=== PATIENT | female | born 1940 | race Caucasian/White ===

== ENCOUNTER → 2017-08-25 | Outpatient (CLI) | payer MEDICARE ==
[~2017-08-25] MED LIST: ASCO500; Aspirin EC81 MG; ERGO400; Prinivil10 MG; Super B Comple150 MG; Systane 0.3-0.1 EACH; UBID100
[2017-08-27 13:29] LABS: HPV Genotype 16 Not Detected (NOTDET); HPV Genotype 18 Not Detected (NOTDET)
[2017-09-01 18:46] LABS: HPV High Risk Other Not Detected (NOTDET)
== END | disposition home or self-care (01) ==
LOC: LAB 11:42
PROVIDERS: Nurse Practitioner Obstetrics & Gynecology
DX: Z01.419 Encounter for gynecological examination (general) (routine) without abnormal findings (principal)
CPT/HCPCS: 87624; G0123

== ENCOUNTER 2017-11-27 08:25 | Day surgery (SDC) | payer MEDICARE ==
[~2017-11-27] VITALS: Ht 157.5 cm; Wt 77.8 kg
== END 2017-11-27 10:59 | disposition home or self-care (01) ==
LOC: ORSCSDS 08:25
PROVIDERS: Surgery
PROC: 0DBL8ZX Excision of Transverse Colon, Via Natural or Artificial Opening Endoscopic, Diagnostic (ICD-10-PCS; principal; 2017-11-27 09:45)
DX: Z12.11 Encounter for screening for malignant neoplasm of colon (principal); D12.3 Benign neoplasm of transverse colon; Z86.010 Personal history of colon polyps; E78.5 Hyperlipidemia, unspecified; E66.9 Obesity, unspecified; Z68.32 Body mass index [BMI] 32.0-32.9, adult; Z79.82 Long term (current) use of aspirin; Z79.899 Other long term (current) drug therapy
CPT/HCPCS: 88305; J7120

== ENCOUNTER → 2017-12-11 | Outpatient (CLI) | payer MEDICARE ==
[2017-12-11 10:22] LABS: BASOPHILS ABSOLUTE AUTO 0.04 K/mm3 (0.00-0.23); BASOPHILS PERCENT AUTO 1 % (0-2); EOSINOPHILS ABSOLUTE AUTO 0.15 K/mm3 (0.00-0.68); EOSINOPHILS PERCENT AUTO 3 % (0-6); Hematocrit 38.6 % (33.0-51.0); Hemoglobin 12.9 g/dL (11.5-16.0); IMMATURE GRAN ABSOLUTE AUTO 0.01 K/mm3 (0.00-0.10); IMMATURE GRAN PERCENT AUTO 0 % (0-1); LYMPHOCYTES PERCENT AUTO 38 % (21-46); MONOCYTES ABSOLUTE AUTO 0.67 K/mm3 (0.16-1.47); MONOCYTES PERCENT AUTO 13 % (4-13); Mean Corpuscular HGB 32.3 pg (26.0-34.0); Mean Corpuscular HGB Conc 33.4 g/dL (31.5-36.5); Mean Corpuscular Volume 97 fL (80-100); Mean Platelet Volume 10.5 fL (9.1-12.4); NEUTROPHILS ABSOLUTE AUTO 2.39 K/mm3 (1.96-9.15); NEUTROPHILS PERCENT AUTO 45 % (41-73); Platelet Count 196 K/mm3 (150-400); RDW Coefficient Variation 13.2 % (11.7-14.2); RDW Standard Deviation 47.1 fL (35.1-46.3); White Blood Cell Count 5.26 K/mm3 (4.00-11.30)
[2017-12-11 10:26] LABS: Source, Urine Clean Catch
[2017-12-11 10:58] LABS: Albumin, Blood 3.9 g/dL (3.4-5.0); Bilirubin, Total 0.6 mg/dL (0.1-1.0); Bun/Creatinine Ratio 22.8 (12.0-20.0); Calcium, Blood 9.5 mg/dL (8.5-10.1); Creatinine, Blood 1.01 mg/dL (0.40-1.00); Globulin, Blood 3.8 g/dL (2.2-4.0); Potassium, Blood 4.3 mmol/L (3.5-5.5); Total Protein, Blood 7.7 g/dL (6.4-8.2)
[2017-12-11 11:43] LABS: Squamous Epithelial Cells Few /hpf (Few)
[2017-12-11 11:57] LABS: Bacteria Few /hpf
== END | disposition home or self-care (01) ==
LOC: LAB SHORT 10:15 → LAB EV 10:15
PROVIDERS: General Practice
DX: Z53.9 Procedure and treatment not carried out, unspecified reason (principal)
CPT/HCPCS: 80053; 81015; 85025; 87086

== ENCOUNTER → 2019-02-22 | Outpatient (CLI) | payer MEDICARE | END | disposition home or self-care (01) | LOC: PLD 14:49 → LAB SHORT 14:49 | DX: C44.519 Basal cell carcinoma of skin of other part of trunk (principal) | CPT/HCPCS: 88305 ==

== ENCOUNTER → 2019-12-16 | Outpatient (CLI) | payer MEDICARE ==
[2019-12-17 14:08] LABS: HPV 16 Negative (Negative); HPV 18 Negative (Negative); HPV OTHER HR TYPES Negative (Negative)
== END | disposition home or self-care (01) ==
LOC: LAB 10:46 → LAB SHORT 10:46
PROVIDERS: Advanced Practice Midwife
DX: Z01.419 Encounter for gynecological examination (general) (routine) without abnormal findings (principal)
CPT/HCPCS: 87624; G0123

== ENCOUNTER 2020-09-07 18:08 | Inpatient (IN) | payer MEDICARE ==
[~2020-09-07] VITALS: Ht 157.5 cm; Wt 81.8 kg
[~2020-09-07 18:08] MED LIST changes: +LISI5 PO; -Prinivil10 MG
[2020-09-07 19:18] LABS: BASOPHILS ABSOLUTE AUTO 0.02 K/mm3 (0.00-0.23); BASOPHILS PERCENT AUTO 0 % (0-2); EOSINOPHILS ABSOLUTE AUTO 0.03 K/mm3 (0.00-0.68); EOSINOPHILS PERCENT AUTO 0 % (0-6); Hematocrit 38.3 % (33.0-51.0); Hemoglobin 12.7 g/dL (11.5-16.0); IMMATURE GRAN ABSOLUTE AUTO 0.04 K/mm3 (0.00-0.10); IMMATURE GRAN PERCENT AUTO 1 % (0-1); LYMPHOCYTES ABSOLUTE AUTO 1.56 K/mm3 (0.84-5.20); LYMPHOCYTES PERCENT AUTO 19 % (21-46); MONOCYTES ABSOLUTE AUTO 0.88 K/mm3 (0.16-1.47); MONOCYTES PERCENT AUTO 11 % (4-13); Mean Corpuscular HGB Conc 33.2 g/dL (31.5-36.5); Mean Corpuscular Volume 97 fL (80-100); Mean Platelet Volume 11.9 fL (9.1-12.4); NEUTROPHILS ABSOLUTE AUTO 5.72 K/mm3 (1.96-9.15); NEUTROPHILS PERCENT AUTO 69 % (41-73); Platelet Count 171 K/mm3 (150-400); RDW Standard Deviation 49.5 fL (35.1-46.3); Red Blood Cell Count 3.97 M/mm3 (3.80-5.20); White Blood Cell Count 8.25 K/mm3 (4.00-11.30)
[2020-09-07 19:30] LABS: Albumin, Blood 3.2 g/dL (3.4-5.0); Albumin/Globulin Ratio 0.8 (0.8-1.8); Bilirubin, Total 0.6 mg/dL (0.1-1.0); Bun/Creatinine Ratio 20.9 (12.0-20.0); Calcium, Blood 9.1 mg/dL (8.5-10.1); Creatinine, Blood 1.1 mg/dL (0.40-1.00); Globulin, Blood 3.9 g/dL (2.2-4.0); Potassium, Blood 4.2 mmol/L (3.5-5.5); Total Protein, Blood 7.1 g/dL (6.4-8.2)
[2020-09-07 22:06] LABS: International Normalized Ratio 1.07; Prothrombin Time Results 11.4 Sec (9.7-11.5)
--- NOTE | 2020-09-08 02:00 | NUR ---
PT ADMITTED TO ROOM ICU 6 FROM EMERGENCY DEPARTMENT. ARRIVES TO ROOM AT 0028 THIS MORNING. SLIDE TRANSFERRED TO BED. SECONDARY TO POSSIBLE INTERVENTION IN AM FOR EXTENSIVE PE'S, AND DVT IN RIGHT LEG PLACED 16 ESTONIAN TEMP PROBE URIAS. PT VERBALIZES UNDERSTANDING, AND AGREEMENT FOR PLACEMENT. HAD VOIDED JUST PRIOR TO INSERTION. NOTED URINE IN BEDPAN WAS MAGDALENA/RED IN COLOR. INQUIRED IF PT HAS TAKEN PYRIDIUM, AND SHE STATED NO. PT STATES THAT HER URINE HAS BEEN LIKE THIS WHEN SHE WAS HOME. ALSO PLACED POWERGLIDE IN LEFT UPPER ARM. DR LIEBERMAN MADE AWARE OF URINE COLOR. SENT UA. WILL CONTINUE HEPARIN DRIP AND MONITOR H/H.
[2020-09-08] MEDS ORDERED: Vitamin D2000 UNIT PO (02:15)
[2020-09-08 05:37] LABS: BASOPHILS ABSOLUTE AUTO 0.01 K/mm3 (0.00-0.23); BASOPHILS PERCENT AUTO 0 % (0-2); EOSINOPHILS PERCENT AUTO 0 % (0-6); Hematocrit 35.5 % (33.0-51.0); Hemoglobin 11.7 g/dL (11.5-16.0); IMMATURE GRAN ABSOLUTE AUTO 0.04 K/mm3 (0.00-0.10); IMMATURE GRAN PERCENT AUTO 1 % (0-1); LYMPHOCYTES ABSOLUTE AUTO 1.05 K/mm3 (0.84-5.20); LYMPHOCYTES PERCENT AUTO 19 % (21-46); MONOCYTES ABSOLUTE AUTO 0.32 K/mm3 (0.16-1.47); MONOCYTES PERCENT AUTO 6 % (4-13); Mean Corpuscular Volume 94 fL (80-100); Mean Platelet Volume 11.8 fL (9.1-12.4); NEUTROPHILS ABSOLUTE AUTO 4.21 K/mm3 (1.96-9.15); NEUTROPHILS PERCENT AUTO 75 % (41-73); Platelet Count 169 K/mm3 (150-400); RDW Coefficient Variation 13.8 % (11.7-14.2); Red Blood Cell Count 3.77 M/mm3 (3.80-5.20); White Blood Cell Count 5.63 K/mm3 (4.00-11.30)
[2020-09-08 06:23] LABS: Bun/Creatinine Ratio 21.1 (12.0-20.0); Calcium, Blood 8.8 mg/dL (8.5-10.1); Creatinine, Blood 0.95 mg/dL (0.40-1.00); Potassium, Blood 4.5 mmol/L (3.5-5.5)
--- NOTE | 2020-09-08 06:30 | NUR ---
H/H REMAINS STABLE. DR LIEBERMAN AGAIN MADE AWARE. PT CONTINUES ON HEPARIN DRIP AT 15 UNITS/KG. PT HAS REMAINED ON 3-4 LITERS OXYGEN PER NASAL CANNULA. HAS BEEN ABLE TO SLEEP MOST OF NIGHT. WILL CONTINUE TO MONITOR PT, AND WILL REPORT OFF TO ONCOMING.
[2020-09-08 07:04] LABS: Source, Urine Catheter
[2020-09-08 07:21] LABS: Appearance, Urine Bloody (Clear); Bilirubin, Urine Neg (Neg); Blood, Urine 5+ (Neg); Color, Urine Red (P-Yellow); Glucose Qualitative, Urine Neg (Neg); Ketones, Urine Neg (Neg); Leukocyte Esterase, Urine 1+ (Neg); Nitrite, Urine Neg (Neg); Protein, Urine 3+ (Neg); Specific Gravity, Urine 1.015 (1.003-1.022); Urobilinogen, Urine NORM (Normal)
[2020-09-08 07:23] LABS: Red Blood Cells, Urine TNTC /hpf (0-2); Squamous Epithelial Cells Few /hpf (Few)
[2020-09-08 07:24] LABS: Amorphous Mod (0-Heavy); Bacteria Mod /hpf
--- NOTE | 2020-09-08 08:30 | NUR ---
PT RESTING IN BED. A/O X4, DENIES PAIN AND SOB. ON 3L NC WITH SPO2 96%. HEPARIN GTT RUNNING FOR PE'S. DR. MO HAS BEEN CONSULTED FOR POSSIBLE INTERVENTION WITH PE'S AND DVT. HAS GOOD FLOW TO BLE WITH GOOD CAP REFILL AND PULSES. DENIES NUMBNESS OR TINGLING. PT STATES SHE GOT A GOOD NIGHT SLEEP. NO REQUESTS AT THE MOMENT.
--- NOTE | 2020-09-08 10:30 | NUR ---
DR. ERNANDEZ IN TO SEE PT. LET HIM KNOW ABOUT PT'S HR TRENDING 40'S-50'S AFIB. PT IS A/O X4, DENIES PAIN OR SOB.
--- NOTE | 2020-09-08 13:05 | NUR ---
CARE COORDINATION REFERRAL - ADMIT: 09/07/20 DISCHARGE: DX:PNEUMONIA DUE TO COVID-19 VIRUS, MULTIPLE PES IN ALL LOBES WITH SOME BEING OCCLUSIVE WITH ASSOCIATED RIGHT HEART STRAIN, ACUTE HYPOXIC RESPIRATORY FAILURE CC: YESI CALL: RESIDENCE: HOME CAREGIVER: JANA BENTON, SON, , GENO BENTON, SON, , DX: COVID-19, HTN, PVD, CKD-STAGE 3, SEE LIST DME: COMPRESSION STOCKINGS CCM: NONE HOME HEALTH: NONE
--- NOTE | 2020-09-08 14:30 | NUR ---
PT'S HR DIPPING IN TO HIGH 30'S AT TIMES AND BP IS TRENDING LOWER. [facility] REGULAT[facility] AFFAIRS SPECIALIST SPOKE WITH DR. ERNANDEZ AND CONSULTED DR. BELTRAN FOR CARDIOLOGY CONSULT. DR. BELTRAN LOOKED OVER PT'S CHART AND WENT TO TALK TO DR. MO ABOUT CASE. PT STILL HAS NO COMPLAINTS AND IS NOT REQUIRING ANY MORE O2 THAN THIS AM. 500ML BOLUS STARTED.
--- NOTE | 2020-09-08 15:19 | NUR ---
DR. MO IN TO SEE PT. WILL BE GOING TO WATCHSTANDER FOR INTERVENTION FOR PE.
--- NOTE | 2020-09-08 16:30 | NUR ---
PT TAKEN TO INSTRUMENT AND ELECTRICAL TECHNICIAN BY INSTRUMENT AND ELECTRICAL TECHNICIAN RN X2, NO SIGN OF DISTRESS.
--- NOTE | 2020-09-08 17:40 | NUR ---
PT BACK TO ROOM FROM ACCELERATOR OPERATOR. HAS EKOS TO R FEMORAL VENOUS SHEATH WITH TPA AND HEPARIN RUNNING. PUMPS CONFIRMED WITH KRISTA BUCHANAN WITH DR. MO'S ORDERS. PT IS A/O X4. DENIES PAIN, SOB, AND N/V. NO NUMBNESS OR TINGLING IN LEGS. HAS STRONG DORSAL PEDAL PULSES. SPO2 PROBE ON R 2ND TOE READING IN THE HIGH 90'S. PT IS COMPLIANT WITH LAYING FLAT AND IS COMFORTABLE AT THE MOMENT.
--- NOTE | 2020-09-08 18:35 | NUR ---
SUMMARY PT IS A/O X4. WENT TO [employer] PLANTER THIS EVENING FOR EKOS PLACEMENT DUE PE'S AND DVT. R FEMORAL VENOUS SHEATH IN PLACE WITH HEPARIN AND TPA RUNNING THROUGH PORT. SITE IS SOFT NON TENDER, NO HEMATOMA. HAS STRONG DORSAL PEDAL PULSES BILAT. FEET ARE WARM AND PINK. NO SIGN OF DISTRESS. SEE PREVIOUS NOTES.
--- NOTE | 2020-09-08 21:37 | NUR ---
SHIFT ASSESSMENT ASSUMED CARE OF PT @ 1900. RECV'D REPORT FROM BRINA BUCHANAN. PT ALERT AND ORIENTED. LAYING SUPINE IN BED, KEEPING R LEG STRAIGHT. TPA AND HEPARIN RUNNING PER ORDERS IN R R FEMORAL VENOUS SHEATH, CONFIRMED RATE WITH BRINA BUCHANAN. NO NUMBNESS/ TINGLING IN LEGS. GOOD PMS, CAP REFILL R FOOT <3SEC. SPO2 PROBE ON R TOE, SPO2 HIGH 90'S. PT COMFORTABLE UPON ASSESSMENT. WILL CONTINUE TO MONITOR.
--- NOTE | 2020-09-09 05:58 | NUR ---
SHIFT SUMMARY NO SIGNIFICANT CHANGES THIS SHIFT. PT CONTINUES TO LAY SUPINE, COMPLIANT WITH KEEPING LEG IMMOBILE. PT C/O MODERATE BACK PAIN FROM POSITION, MEDICATED WITH PRN PAIN MEDS. HEPARIN AND TPA CONTINUE TO INFUSE @ PRESCRIBED RATE IN R FEMORAL VENOUS SHEATH. GOOD PULSE, MOTOR, AND SENSORY OF R EXTREMITY. CAP REFILL <3 SECONDS OF R TOES. URIAS CATH PATENT, DRAINING RED URINE. WILL CONTINUE TO MONITOR.
--- NOTE | 2020-09-09 08:00 | NUR ---
PT RESTING IN BED. A/O X4. HAS PAIN IN LOW BACK FROM LAYING FLAT DURING THE NIGHT. PT HAS R FEMORAL VENOUS SHEATH WITH EKOS IN PLACE, THEREFORE CANNOT FLEX AT THE HIP OR NECK. WAS ABLE TO VERY SLIGHTLY RAISE KNEES IN BED WITHOUT FLEXING HIPS AND GAVE DOSE OF MORPHINE. PT STATES THIS HELPED BACK PAIN. STRONG PEDAL PULSES AND FEET ARE PINK AND WARM. DENIES SOB OR N/V. ASSISTED WITH DRINKING ENSURE. CALL LIGHT IN REACH. PT LISTENING TO MUSIC.
--- NOTE | 2020-09-09 12:25 | NUR ---
DISCUSSED WITH DR. ERNANDEZ AT BEDSIDE PT'S NEED FOR ANTICOAGULATION NOW THAT THE TPA AND HEPARIN HAVE BEEN STOPPED.
--- NOTE | 2020-09-09 12:30 | NUR ---
DR. MALIK CAME IN AND REMOVED EKOS CATHETER. SHEATH PULLED AND PRESSURE HELD FOR 10MINUTES. CLEANED AREA WITH CHLORASEPT THEN PLACED GAUZE WITH CLEAR DRESSING. PT TOLERATED WELL. NO SIGN OF DISTRESS. CALL LIGHT IN REACH.
--- NOTE | 2020-09-09 18:20 | NUR ---
SUMMARY PT IS SITTING UP EATING DINNER. HAD EKOS REMOVED THIS AM BY DR. MALIK. SHEATH REMOVED AND REMAINS STABLE NO SIGNS OF BLEEDING. DENIES PAIN NOW THAT SHE CAN SIT UP IN BED AND MOVE MORE. TITRATED OXYGEN DOWN TO 1L NC AND TOLERATING WELL. CHANGED TO PCU STATUS. SON CAME IN AND VISITED TODAY. NO COMPLAINTS OR REQUESTS.
--- NOTE | 2020-09-09 21:00 | NUR ---
SHIFT ASSESSMENT ASSUMED CARE OF PT @ 1900, RECEIVED REPORT FROM CHANEL GONSALVES. PT RESTING COMFORTABLY IN BED. ALERT AND ORIENTED, NO COMPLAINTS AT THIS TIME. STATES SHE FEELS MUCH BETTER THAN LAST NIGHT AND HER DINNER WAS WONDERFUL. ON 1LPM O2 VIA NC c O2 SAT >90%. R FEMORAL DRESSING C/D/I, NO SWELLING OR SIGNS OF BLEEDING AROUND SITE. GOOD PULSE, MOTOR, AND SENSORY IN BOTH BLE, CAP REFILL <3 SECONDS. A-FIB ON THE CHILD ATTENDANT. URIAS CATH DRAINING YELLOW/ RED URINE. WILL CONTINUE TO MONITOR.
[2020-09-10 06:21] LABS: BASOPHILS ABSOLUTE AUTO 0.01 K/mm3 (0.00-0.23); BASOPHILS PERCENT AUTO 0 % (0-2); EOSINOPHILS ABSOLUTE AUTO 0.01 K/mm3 (0.00-0.68); EOSINOPHILS PERCENT AUTO 0 % (0-6); Hematocrit 33.7 % (33.0-51.0); Hemoglobin 10.7 g/dL (11.5-16.0); IMMATURE GRAN ABSOLUTE AUTO 0.09 K/mm3 (0.00-0.10); IMMATURE GRAN PERCENT AUTO 1 % (0-1); LYMPHOCYTES ABSOLUTE AUTO 1.56 K/mm3 (0.84-5.20); LYMPHOCYTES PERCENT AUTO 20 % (21-46); MONOCYTES ABSOLUTE AUTO 0.84 K/mm3 (0.16-1.47); MONOCYTES PERCENT AUTO 11 % (4-13); Mean Corpuscular HGB 30.9 pg (26.0-34.0); Mean Corpuscular HGB Conc 31.8 g/dL (31.5-36.5); Mean Corpuscular Volume 97 fL (80-100); Mean Platelet Volume 11.6 fL (9.1-12.4); NEUTROPHILS PERCENT AUTO 68 % (41-73); Platelet Count 153 K/mm3 (150-400); RDW Coefficient Variation 14.3 % (11.7-14.2); RDW Standard Deviation 50.2 fL (35.1-46.3); Red Blood Cell Count 3.46 M/mm3 (3.80-5.20); White Blood Cell Count 7.71 K/mm3 (4.00-11.30)
[2020-09-10 06:38] LABS: Albumin, Blood 2.2 g/dL (3.4-5.0); Albumin/Globulin Ratio 0.7 (0.8-1.8); Bilirubin, Total 0.3 mg/dL (0.1-1.0); Bun/Creatinine Ratio 31.1 (12.0-20.0); Calcium, Blood 8.2 mg/dL (8.5-10.1); Creatinine, Blood 1.03 mg/dL (0.40-1.00); Globulin, Blood 3.3 g/dL (2.2-4.0); Potassium, Blood 4.5 mmol/L (3.5-5.5); Total Protein, Blood 5.5 g/dL (6.4-8.2)
--- NOTE | 2020-09-10 07:15 | NUR ---
SHIFT SUMMARY PT REMAINS ALERT AND ORIENTED. SLEPT WELL FOR MOST OF THE NIGHT. NO C/O PAIN OR DISCOMFORT. HEPARIN CONTINUES TO INFUSE AT PRESCRIBED RATE. GOOD PULSES IN BLE T/O THE NIGHT. O2 SATS >90% ON 1LPM VIA NC. NO SIGNIFICANT CHANGES IN PT CONDTION. REPORT GIVEN TO CHANEL STRATTON.
--- NOTE | 2020-09-10 10:23 | NUR ---
PT CURRENTLY WORKING WITH PHYSICAL THERAPY, SHE HAS ENERGETIC AND ENGAGING THIS MORNING WITH BREAKFAST AND ORAL CARE/SKIN/FACE CARE. SHE IS FEELING GOOD AND DOES NOT HAVE ANY COMPLAINTS. HER OXYGEN WAS REMOVED FOR FACIAL CARE, SHE TOLERATED REALLY WELL, AFTER ABOUT 5 MINUTES HER SATS DROPPED TO HIGH 80'S. AFTER A COUPLE OF GOOD DEEP BREATHS SHE RETURNED TO 90S.
--- NOTE | 2020-09-10 14:49 | NUR ---
PT UP TO BSC AND CHAIR AFTER LUNCH. TOLERATED BOTH VERY WELL. SHE DID GET SHORT OF BREATH UPON RETURN TO THE BED WITH SATS DIPPING IN THE LOW 80'S,PT FELT SHORT OF BREATH AND IT TOOK ABOUT 5 MIN TO RECOVER. OXYGEN BROUGHT UP TO 2L TO HELP HER FEEL LIKE SHE WAS GETTING HER AIR. SHE "ENJOYED" THE CHAIR.
--- NOTE | 2020-09-10 18:02 | NUR ---
PT HAD TO INCREASE TO 3L/NC SHE WAS VISIBLY WORKING TO CATCH HER BREATH AND SATS DROPPING TO 83%. WILL WATCH AND TITRATE.
--- NOTE | 2020-09-10 19:10 | NUR ---
SHIFT ASSESSMENT ASSUMED CARE OF PT @ 1900, REPORT FROM CHANEL STRATTON. PT ALERT AND ORIENTED, SITTING UPRIGHT IN BED LISTENING TO MUSIC ON THE TV. FOOD TRAY REMOVED, PT ATE APPROXIMATLEY 70% OF HER DINNER, STATED "YOU GUYS FEED ME TOO WELL HERE". PT SEEMS TO BE IN GOOD SPIRITS, STATES SHE FEELS WELL BUT STILL NERVOUS ABOUT HER CONDITION. O2 REQUIREMENTS INCREASED TODAY AFTER WORKING WITH PHYSICAL THERAPY, CURRENTLY PT IS ON 3LPM O2 VIA NC c O2 SATS >90%, I WILL ATTEMPT TO TITRATE DOWN T/O THE NIGHT IF POSSIBLE. HEPARING GTT DC'D @ 2100, PT NOW ON PO XARELTO. PT CONTINUES TO HAVE GOOD P/M/S IN EXTREMITIES. WILL CONTINUE TO MONITOR.
--- NOTE | 2020-09-10 19:29 | NUR ---
CHRISTINA HAD A GOOD DAY, SHE WAS ON 1L/NC OF OXYGEN FOR THE MAJORITY OF THE DAY, SEE NOTES ABOUT DESATS. SHE ATE WELL, SHE MOVED WELL WITH HER PHYSICAL THERAPY TREATMENT TODAY, SHE WAS UP TO THE BS AND HAD A BM. SHE HAD A VISIT FROM HER SON AND HAS DONE WELL. SHE HAS NOT COMPLAINED OF ANYTHING AND BEEN PLEASANT. REPORT TO NOC SHIFT.
--- NOTE | 2020-09-11 05:05 | NUR ---
UPDATE AROUND 0430 PT BEGAN DESATTING FROM LOW TO MID 90'S TO THE HIGH 80'S ON 3LPM O2 VIA NC. THIS NURSE AND AIRLINE STATION AGENT HILARY BOOSTED PT, SWAPPED OUT THE SPO2 PROBE FOR A NEW ONE AND TITRATED OXYGEN UP TO 6LPM VIA NC. PTS SATS SLOWLY CAME UP TO THE LOW 90'S. PT DENIED CP AND SOB. UPON ASSESSING PT, NO CHANGES IN LUNG SOUNDS NOTED. THIS NURSE TALKED PT THROUGH SOME DEEP BREATHING. O2 SATS ABLE TO BE TITRATED DOWN TO 5LPM VIA NC c O2 SATS >90%. DISCUSSED WITH DR LIEBERMAN, WE WILL CONTINUE TO MONITOR CLOSELY.
--- NOTE | 2020-09-11 06:03 | NUR ---
SHIFT SUMMARY NO SIGNIFICANT CHANGES FROM LAST UPDATE. PT SITTING UPRIGHT IN BED, WAS UNABLE TO SLEEP MUCH LAST NIGHT. O2 SATS >90% ON 5LPM VIA NC. BP STABLE. DIRECT SALES CONSULTANT CONTINUES TO SHOW A-FIB IN THE 50-60'S. URIAS CATH PATENT, DRAINING RED URINE. WILL CONTINUE TO MONITOR, REPORT TO ONCOMING NURSE.
--- NOTE | 2020-09-11 07:30 | NUR ---
ASSUMED CARE RECEIVED REPORT FROM CHANEL ROJAS. PT IS SLEEPING IN BED, ON 4-5L NC, SPO2 90-94%. URIAS PATENT DRAINING MAGDALENA/DARK URINE WITH DARK RED COLORING, SEDIMENT AND POSSIBLY SMALL BLOOD CLOTS PRESENT IN URIAS BAG. VITALS STABLE, AFIB, RATE 50-60s. NS INFUSING AT 75 ML/HR. BED LOW AND LOCKED. CALL LIGHT WITHIN REACH.
--- NOTE | 2020-09-11 11:30 | NUR ---
UPDATE NO MAJOR CHANGES. PT HAS BEEN IN CHAIR, AFTER WORKING WITH NU FROM OT AND TRANSFERRING TO THE RECLINER. SPO2 IS 90-93% ON 4L NC. TOLERATED THE MOVEMENT WELL, CURRENTLY SLEEPING NOW. BED LOW AND LOCKED. CALL LIGHT WITHIN REACH. DR. HOOKER HAS BEEN BY AND SEEN THE PT.
--- NOTE | 2020-09-11 16:34 | NUR ---
UPDATE OXYGEN WAS TITRATED DOWN TO 2L FROM ~4.5L 1540 DUE TO HAVING SPO2 AT 98-100%. PT DENIED SOB. WHEN SHE WAS EATING PRIOR TO THAT SHE WOULD DESAT TO THE HIGH 80s FOR SHORT PERIODS OF TIME. USUALLY MAINTAINED IN THE 90s. PT DID DESAT WHEN SHE WAS ASLEEP AROUND ~1630 BECAUSE HER OXYGEN HAD FALLEN OUT OF HER NOSE, SHE GOT LOW 75-82%. BUT AFTER WAKING HER UP AND INSTRUCTING TO PUT BACK ON THE NC, SHE RECOVERED TO 85-90%. OXYGEN TURNED UP TO 4L - WILL CONTINUE TO MONITOR. PT SITTING UP IN BED, SHE HAD WORKED WITH OT EARLIER THIS MORNING, AND PT THIS AFTERNOON. DOING WELL BY KEEPING OXYGEN LEVELS STABLE. CALL LIGHT WITHIN REACH.
--- NOTE | 2020-09-11 17:29 | NUR ---
Spiritual care note: Mrs. Kaminski appears very tired. I was with her when he last weekend. Covid kept her from being as close to him as she would have liked. She responded well to bereavement corporate counselor and appears to have very strong family support. We spoke about her wishes. She would like all medical measures to sustain life. "I have so much I still want to do with my grand and greatgrand kids." Mrs. Kaminski has a strong celsa that gives her hope and strength. I will remain available.
--- NOTE | 2020-09-11 17:29 | NUR ---
END OF SHIFT NO MAJOR CHANGES SINCE LAST NOTE. PT BACK DOWN TO 2L NC, SPO2 91-93% AND IS MAINTAINING SATs > 90% EVEN WHEN TALKING ON THE PHONE. SHE HAS SAT IN THE CHAIR FOR THE MAJORITY OF THE DAY, WORKED WITH BOTH PHYSICAL THERAPY AND OCCUPATIONAL THERAPY - STANDING UP AND TRANSPORTING SMALL DISTANCES IN THE ROOM ALONG WITH OTHER EXERCISES. HER SON, AND SISTER HAVE BEEN UPDATED TODAY. PT's GROIN SITE IS WNL, SOFT, NONTENDER, AND NO SIGNS OF HEMATOMA FORMATION. PT DENIES CHEST PAIN, SOB, NAUSEA, AND ANY DISCOMFORT. STATES DYSPNEA WITH EXERTION, AND IS DIMINISHED T/O LUNGS. NS INFUSING AT 75 ML/HR. CALL LIGHT WITHIN REACH. VITALS ARE STABLE. AFEBRILE. COUGH HAS BEEN DECREASING IN FREQUENCY.
--- NOTE | 2020-09-11 22:03 | NUR ---
SHIFT ASSESSMENT/ TRANSFER PT ALERT AND ORIENTED. ON 2LPM O2 VIA NC c O2 SATS >90%. SITTING UPRIGHT IN BEDSIDE CHAIR UPON ASSESSMENT. PT STATED SHE HAD A GOOD DAY TODAY, BUT IS QUITE TIRED. EVENT MANAGEMENT CONSULTANT AND THIS NURSE ASSISTED PT WITH BED BATH. PT MEDICATED c REMDESIVIR AND TRAZADONE. PT QUICKLY TO SLEEP ONCE IN BED. NO COMPLAINTS OR CONCERNS FROM PT. PT TRANSFERRED TO MEDICAL FLOOR ROOM 302. REPORT TO ROMELIA BUCHANAN.
--- NOTE | 2020-09-11 22:10 | NUR ---
GOT REPORT FROM CRYSTAL RN IN ICU. PATIENT ARRIVED TO THE FLOOR. SETTLED IN ROOM, O2 ON AT 2L. IVF ON AT 75ML/HR. SHE DENIED ANY NEEDS AT THIS TIME. CALL LIGHT IS AT BEDSIDE. AGREED WITH CRYSTAL BUCHANANSENIOR SALES COMPENSATION ANALYST.
--- NOTE | 2020-09-11 22:59 | NUR ---
PLACED TELE ANTONINO REPORTED HER HR RUNNING SHABANA DOWN TO 48, ALSO GOT ANOTHER CALL REPORTING A 3 SECOND PAUSE. WILL CONTINUE TO MONITOR.
--- NOTE | 2020-09-12 04:49 | NUR ---
SHIFT SUMMARY: TRANSFER FROM ICU-6, HERE FOR COVID-19 POSITIVE PNEUMONIA AND BILATERAL PE. AOX3, WAS ABLE TO TRANSFER TO BED WIHT SBA. LUNG SOUNDS DIMINISHED, COUGH IS OCCAITONAL, NO PRODUCTION. ON 2 LITERS WHEN SHE ARRIVED, DID HAVE TO TURN UP TO 4 LITERS DURING SLEEPING, WILL BE ABLE TO WEAN DOWN DURING THE DAY. DENIED ANY PAIN. VS WNL, AFEBRILE. SLEPT SINCE SHE GOT TO THE FLOOR. CATHETER PATENT AND DRAINING BLOOD TINGED URINE. ENCOURAED FLUID INTAKE TO FLUSH BLADDER. USES CALL LIGHT APPROPRIATLY. NO OTHER CHANGES TO REPORT.
[2020-09-12 12:19] LABS: BASOPHILS ABSOLUTE AUTO 0.01 K/mm3 (0.00-0.23); BASOPHILS PERCENT AUTO 0 % (0-2); EOSINOPHILS PERCENT AUTO 0 % (0-6); Hematocrit 36.7 % (33.0-51.0); Hemoglobin 11.9 g/dL (11.5-16.0); IMMATURE GRAN ABSOLUTE AUTO 0.17 K/mm3 (0.00-0.10); IMMATURE GRAN PERCENT AUTO 2 % (0-1); LYMPHOCYTES ABSOLUTE AUTO 0.91 K/mm3 (0.84-5.20); LYMPHOCYTES PERCENT AUTO 8 % (21-46); MONOCYTES ABSOLUTE AUTO 0.69 K/mm3 (0.16-1.47); MONOCYTES PERCENT AUTO 6 % (4-13); Mean Corpuscular HGB 31.3 pg (26.0-34.0); Mean Corpuscular HGB Conc 32.4 g/dL (31.5-36.5); Mean Corpuscular Volume 97 fL (80-100); NEUTROPHILS ABSOLUTE AUTO 9.26 K/mm3 (1.96-9.15); NEUTROPHILS PERCENT AUTO 84 % (41-73); Platelet Count 181 K/mm3 (150-400); RDW Coefficient Variation 14.4 % (11.7-14.2); RDW Standard Deviation 49.6 fL (35.1-46.3); White Blood Cell Count 11.04 K/mm3 (4.00-11.30)
[2020-09-12 12:37] LABS: Alanine Aminotransfer (ALT/SGP 31 U/L (12-78); Albumin, Blood 2.3 g/dL (3.4-5.0); Albumin/Globulin Ratio 0.6 (0.8-1.8); Alk Phos 78 U/L (50-136); Anion Gap 5 mmol/L (6-16); Aspartate Aminotrans (AST/SGOT 15 U/L (12-37); Bilirubin, Total 0.5 mg/dL (0.1-1.0); Blood Urea Nitrogen 21 mg/dL (8-24); Bun/Creatinine Ratio 22.5 (12.0-20.0); CO2, Blood 26 mmol/L (21-32); Calcium, Blood 8.5 mg/dL (8.5-10.1); Chloride, Blood 110 mmol/L (98-108); Creatinine, Blood 0.93 mg/dL (0.40-1.00); Ferritin, Serum 462 ng/mL (8-252); Globulin, Blood 3.8 g/dL (2.2-4.0); Glomerular Filtration Rate >60 (60-); Glucose, Blood 166 mg/dL (70-99); Iron Serum 50 ug/dL (50-170); Magnesium, Blood 2.2 mg/dL (1.6-2.4); Percent Saturation 21.7 % (15.0-50.0); Phosphorus, Blood 2.9 mg/dL (2.5-4.9); Potassium, Blood 4.3 mmol/L (3.5-5.5); Sodium, Blood 141 mmol/L (136-145); Total Iron Binding Capacity 230 ug/dL (250-450); Total Protein, Blood 6.1 g/dL (6.4-8.2)
--- NOTE | 2020-09-12 15:14 | NUR ---
SHIFT SUMMARY PT AWAKE THIS AM, RESTING QUIETLY WATCHING NATURE CHANNEL ON TV. PT REPORTED THAT SHE IS FEELING BETTER TODAY. PT REPORTED THAT SHE WAS VERY SLEEPY WHEN TX UP HERE DURING THE NIGHT/EARLY AM. URIAS CATH PATENT, BUT DRAINING VERY DARK CRANBERRY URINE. PT STARTED ON XARELTO FOR DVT'S. DR HOOKER UPDATED ON PT STATUS. DR HOOKER SOON IN TO SEE PT. NEW ORDERS PLACED. PT ABLE TO WORK WITH PT/OT BOTH TODAY, AND DOING VERY WELL. PT SL AND PROVIDED FWW TO AMBULATE IN RM AND TO BTHRM. PT DOES NOT APPEAR TO BE SOB WITH EXERTION TODAY, PREVIOUSLY REPORTED YESTERDAY. LUNGS T/O WITH COARSE CRACKLES, BUT NO COUGHING. PT IS VERY PLEASANT AND GRATEFUL FOR CARE. UP TO CHAIR FOR MEALS. NO C/O. CALL LT IN REACH.
--- NOTE | 2020-09-12 21:10 | NUR ---
ASSUMPTION OF CARE. CHRISTINA IS IN A GOOD MOOD. SHE FEELS SHE HAD A GOOD DAY. SHE WORKED WITH PT. SHE IS CURRENTLY RUNNING HEPARIN AND DOING FINE. URIAS CATHETER HAS PINK TINGED URINE, THIS HAS IMPROVED FROM LAST NIGHT. ENCOURAGED TO KEEP DRINKING TO HELP FLUSH HER BLADDER. RIGHT SIDE LUNG IS DIMINISHED IN BASES BUT BOTH SIDES ARE CLEAR, MINIMAL COUGH NOTED. HR IRREGULAR, AFIB, NO CP OR PALPITATIONS. ON 2 LITERS OF O2 SATS IN THE 90'S. PM MEDS GIVEN. CALL LIGHT IS IN REACH.
[2020-09-13 00:55] LABS: BASOPHILS ABSOLUTE AUTO 0.01 K/mm3 (0.00-0.23); BASOPHILS PERCENT AUTO 0 % (0-2); EOSINOPHILS PERCENT AUTO 0 % (0-6); Hematocrit 32.1 % (33.0-51.0); Hemoglobin 10.6 g/dL (11.5-16.0); IMMATURE GRAN PERCENT AUTO 1 % (0-1); LYMPHOCYTES ABSOLUTE AUTO 1.02 K/mm3 (0.84-5.20); LYMPHOCYTES PERCENT AUTO 12 % (21-46); MONOCYTES ABSOLUTE AUTO 0.93 K/mm3 (0.16-1.47); MONOCYTES PERCENT AUTO 11 % (4-13); Mean Corpuscular HGB 31.1 pg (26.0-34.0); Mean Corpuscular Volume 94 fL (80-100); Mean Platelet Volume 11.1 fL (9.1-12.4); NEUTROPHILS ABSOLUTE AUTO 6.66 K/mm3 (1.96-9.15); NEUTROPHILS PERCENT AUTO 76 % (41-73); Platelet Count 162 K/mm3 (150-400); RDW Coefficient Variation 14.3 % (11.7-14.2); RDW Standard Deviation 47.8 fL (35.1-46.3); Red Blood Cell Count 3.41 M/mm3 (3.80-5.20); White Blood Cell Count 8.72 K/mm3 (4.00-11.30)
[2020-09-13 01:18] LABS: Alanine Aminotransfer (ALT/SGP 23 U/L (12-78); Albumin, Blood 2.1 g/dL (3.4-5.0); Albumin/Globulin Ratio 0.7 (0.8-1.8); Alk Phos 65 U/L (50-136); Anion Gap 4 mmol/L (6-16); Aspartate Aminotrans (AST/SGOT 9 U/L (12-37); Bilirubin, Total 0.3 mg/dL (0.1-1.0); Blood Urea Nitrogen 26 mg/dL (8-24); Bun/Creatinine Ratio 30.4 (12.0-20.0); CO2, Blood 26 mmol/L (21-32); Calcium, Blood 8.4 mg/dL (8.5-10.1); Chloride, Blood 111 mmol/L (98-108); Creatinine, Blood 0.86 mg/dL (0.40-1.00); Globulin, Blood 3.2 g/dL (2.2-4.0); Glomerular Filtration Rate >60 (60-); Glucose, Blood 167 mg/dL (70-99); Lactate Dehydrogenase (Ld),Bld 206 U/L (100-240); Magnesium, Blood 2.2 mg/dL (1.6-2.4); Phosphorus, Blood 2.9 mg/dL (2.5-4.9); Potassium, Blood 4.3 mmol/L (3.5-5.5); Sodium, Blood 141 mmol/L (136-145); Total Protein, Blood 5.3 g/dL (6.4-8.2)
--- NOTE | 2020-09-13 06:29 | NUR ---
SHIFT SUMMARY: CHRISTINA IS DOING WELL. VS WNL, AFEBRILE THIS SHIFT. LUNG SOUNDS CLEAR, OCCATIONAL COUGH NON-PRODUCTIVE. HEPARIN INFUSING VIA IV. HEMATURIA HAS BEEN IMPROVING T/O THE NIGHT, PINK TINGED URINE INSTEAD OF BLOOD. EDEMA STILL IN BLE. AFIB WITH RVR ON AFIB. ON 2 LITERS OF O2 > 90%. NO ACUTE CHANGES TO THIS SHIFT. CALL LIGHT WITH IN REACH.
--- NOTE | 2020-09-13 11:49 | NUR ---
PER PHARMACY, OKAY STOP HEPARIN, START LOVENOX, NO OVERLAP
--- NOTE | 2020-09-13 12:21 | NUR ---
HEPARIN STOPPED 1210, LOVENOX ADMIN AT 1210
--- NOTE | 2020-09-13 18:01 | NUR ---
PT PLEASANT TODAY, NO C/O SOB AT TIMES OF INTERACTION. STATES MOVING ABOUT ROOM SBA, IMPROVING. URIAS CATH WAS DARK DYANA COLOR THIS AM. THIS REYMUNDO IS SLIGHTLY FERTILIZER APPLICATOR. PT CONTINUES TO BE QUITE PLEASANT. DR STOPPED HEPARIN DRIP AND MOVED TO LOVENOX TODAY. NO OTHER NEW CONCERNS AT THIS TIME. BED IN LOW POSITION, CALL LITE IN REACH, CALLS APPROP
--- NOTE | 2020-09-13 18:03 | NUR ---
ADMIT: 09/07/20 DISCHARGE: DX:Pneumonia due to COVID-19 virus, CC: cpeabody YESI CALL: Discharge to home, Son will stay with her, he is also covid positive, no symptoms. RESIDENCE: Home CAREGIVER: Gerald Kaminski, Son, , Delonte Kaminski, Son, , DX: COVID-19, HTN, PVD, CKD-stage 3, see list DME: compression stockings 09/13/20 May require oxygen at discharge. CCM: none HOME HEALTH: May require home health services at discharge. SUMMARY: Admit 09/08/20 09/13/[address] Tilley, condition improving, not interested in [facility] for covid . Plans to have her son stay with her. He is covid positive, no symptoms. May require oxygen at discharge. ETA discharge Sat or Sun. 09/12/[address] Tilley, no eta for discharge 09/11/[address] Tilley, no eta for discharge 09/08/20- pt have Pulmonary embolisms and DVT. Dr. Gomez consulted and took pt to [facility]. Per chart, pt's on Friday from resp failure/covid. -gabo
[2020-09-14 06:21] LABS: BASOPHILS ABSOLUTE AUTO 0.01 K/mm3 (0.00-0.23); BASOPHILS PERCENT AUTO 0 % (0-2); EOSINOPHILS PERCENT AUTO 0 % (0-6); Hematocrit 34.9 % (33.0-51.0); Hemoglobin 11.4 g/dL (11.5-16.0); IMMATURE GRAN ABSOLUTE AUTO 0.12 K/mm3 (0.00-0.10); IMMATURE GRAN PERCENT AUTO 1 % (0-1); LYMPHOCYTES ABSOLUTE AUTO 1.23 K/mm3 (0.84-5.20); LYMPHOCYTES PERCENT AUTO 14 % (21-46); MONOCYTES ABSOLUTE AUTO 0.87 K/mm3 (0.16-1.47); MONOCYTES PERCENT AUTO 10 % (4-13); Mean Corpuscular HGB 31.1 pg (26.0-34.0); Mean Corpuscular HGB Conc 32.7 g/dL (31.5-36.5); Mean Corpuscular Volume 95 fL (80-100); NEUTROPHILS ABSOLUTE AUTO 6.39 K/mm3 (1.96-9.15); NEUTROPHILS PERCENT AUTO 74 % (41-73); Platelet Count 188 K/mm3 (150-400); RDW Coefficient Variation 14.8 % (11.7-14.2); RDW Standard Deviation 49.1 fL (35.1-46.3); Red Blood Cell Count 3.67 M/mm3 (3.80-5.20); White Blood Cell Count 8.62 K/mm3 (4.00-11.30)
[2020-09-14 06:26] LABS: Source, Urine Catheter
[2020-09-14 06:36] LABS: Bun/Creatinine Ratio 28.4 (12.0-20.0); Calcium, Blood 8.6 mg/dL (8.5-10.1); Creatinine, Blood 0.95 mg/dL (0.40-1.00); Potassium, Blood 4.1 mmol/L (3.5-5.5)
--- NOTE | 2020-09-14 06:40 | NUR ---
SHIFT SUMMARY PT IS AN 80 Y/O FEMALE, ADMITTED FOR PNA R/T COVID19, AND CURRENTLY IN ENHANCED ISOLATION. SHE IS A&O X 4, SBA TO THE BATHROOM. URIAS IN PLACE FOR RETENTON, DRAINING DARK PINK URINE. VITAL SIGNS STABLE. NO C/O PAIN, NAUSEA OR SOB. PT STATES SHE SLEPT WELL FOR A FEW HOURS DURING THE NIGHT. NO ACUTE CHANGES IN PT CONDITION NOTED DURING THE NIGHT. WILL CONTINUE TO MONITOR AND TREAT PER EMAR UNTIL HAND OFF TO DAY SHIFT RN.
[2020-09-14 07:11] LABS: Appearance, Urine Hazy (Clear); Bilirubin, Urine Neg (Neg); Blood, Urine 5+ (Neg); Color, Urine Red (P-Yellow); Glucose Qualitative, Urine Neg (Neg); Ketones, Urine Neg (Neg); Leukocyte Esterase, Urine 2+ (Neg); Nitrite, Urine Neg (Neg); Protein, Urine 3+ (Neg); Urobilinogen, Urine NORM (Normal)
[2020-09-14 07:46] LABS: Red Blood Cells, Urine TNTC /hpf (0-2)
[2020-09-14 07:47] LABS: Bacteria Mod /hpf; Squamous Epithelial Cells Rare /hpf (Few)
--- NOTE | 2020-09-14 17:29 | NUR ---
SHIFT SUMMARY PATIENT ALERT AND ORIENTED THROUGHOUT THIS SHIFT. PATIENT SBA TO THE BATHROOM. PATIENT CONTINUES TO HAVE A URIAS FOR RETENTION. URINE TRENDING AWAY FROM DARK PINK TO MERCHANDISING CONSULTANT PINK. PATIENT WALKED IN THE ROOM WITH PHYSICAL THERAPY THIS SHIFT. PATIENT SITTING UP IN BED AND UP IN CHAIR THROUGHOUT THIS SHIFT, OFTEN SPEAKING ON THE PHONE TO FAMILY AND FRIENDS. PATIENT DENIES PAIN THIS SHIFT. PATIENT DENIES ADDITIONAL NEEDS THROUGHOUT THIS SHIFT. PATIENT CURRENTLY SITTING UP IN CHAIR EATING DINNER.
--- NOTE | 2020-09-15 06:06 | NUR ---
SHIFT SUMMARY PT IS AN 80 Y/O FEMALE, ADMITTED FOR PNA R/T COVID-19, CURRENTLY ON ENHANCED ISOLATION. SHE IS A&O X 4, INDEPENDENT IN THE ROOM. URIAS IN PLACE FOR RETENTION, PATENT AND DRAINING PINK TINGED URINE. TELE SHOWED AFIB IN THE 40S DURING THE NIGHT, WITH 12 3-3.2 SECOND HEART PAUSES NOTED BY THE TWISTING FRAME FIXER THROUGH THE NIGHT. CURRENTLY ON 2L OF O2 VIA NC. ALL OTHER VITAL SIGNS STABLE. PT DENIED ANY C/O PAIN, NAUSEA OR SOB. NO ACUTE CHANGES IN PT CONDITION NOTED. WILL CONTINUE TO MONITOR AND TREAT PER EMAR UNTIL HAND OFF TO DAY SHIFT RN.
[2020-09-15 07:04] LABS: BASOPHILS ABSOLUTE AUTO 0.02 K/mm3 (0.00-0.23); BASOPHILS PERCENT AUTO 0 % (0-2); EOSINOPHILS PERCENT AUTO 0 % (0-6); Hematocrit 33.7 % (33.0-51.0); Hemoglobin 11.1 g/dL (11.5-16.0); IMMATURE GRAN ABSOLUTE AUTO 0.15 K/mm3 (0.00-0.10); IMMATURE GRAN PERCENT AUTO 2 % (0-1); LYMPHOCYTES ABSOLUTE AUTO 1.29 K/mm3 (0.84-5.20); LYMPHOCYTES PERCENT AUTO 15 % (21-46); MONOCYTES ABSOLUTE AUTO 1.11 K/mm3 (0.16-1.47); MONOCYTES PERCENT AUTO 13 % (4-13); Mean Corpuscular HGB 31.1 pg (26.0-34.0); Mean Corpuscular HGB Conc 32.9 g/dL (31.5-36.5); Mean Corpuscular Volume 94 fL (80-100); NEUTROPHILS ABSOLUTE AUTO 6.21 K/mm3 (1.96-9.15); NEUTROPHILS PERCENT AUTO 71 % (41-73); Platelet Count 171 K/mm3 (150-400); RDW Coefficient Variation 14.7 % (11.7-14.2); RDW Standard Deviation 48.8 fL (35.1-46.3); Red Blood Cell Count 3.57 M/mm3 (3.80-5.20); White Blood Cell Count 8.78 K/mm3 (4.00-11.30)
[2020-09-15 07:21] LABS: Anion Gap 5 mmol/L (6-16); Blood Urea Nitrogen 27 mg/dL (8-24); Bun/Creatinine Ratio 31.4 (12.0-20.0); CO2, Blood 29 mmol/L (21-32); Calcium, Blood 8.6 mg/dL (8.5-10.1); Chloride, Blood 105 mmol/L (98-108); Creatinine, Blood 0.86 mg/dL (0.40-1.00); Glomerular Filtration Rate >60 (60-); Glucose, Blood 127 mg/dL (70-99); Potassium, Blood 4.4 mmol/L (3.5-5.5); Sodium, Blood 139 mmol/L (136-145)
[2020-09-15 08:35] LABS: International Normalized Ratio 1.14; Prothrombin Time Results 12.1 Sec (9.7-11.5)
--- NOTE | 2020-09-15 16:26 | NUR ---
ADMIT: 09/07/20 DISCHARGE: DX:Pneumonia due to COVID-19 virus, CC: cpeabody YESI CALL: Discharge to home, Son will stay with her, he is also covid positive, no symptoms. RESIDENCE: Home CAREGIVER: Gerald Kaminski, Son, , Delonte Kaminski, Son, , DX: COVID-19, HTN, PVD, CKD-stage 3, see list DME: compression stockings 09/13/20 May require oxygen at discharge. CCM: none HOME HEALTH: May require home health services at discharge. SUMMARY: Admit 09/08/20 09/15/20 Edna being seen by Dr Kelly this weekend. Per Dr Tilley, needs to become theraputic on coumidin before discharge. Friday will be 5 days. Plans to return home with [facility] care. Son is also Covid positive, non symptomatic. cp
--- NOTE | 2020-09-15 17:15 | NUR ---
SHIFT SUMMARY PATIENT ALERT AND ORIENTED THIS SHIFT. PATIENT UP WITH 1 ASSIST WITH LINES AND TUBES. PATIENT WORKED WITH PT THIS AM. PATIENT UP IN THE CHAIR MOST OF THIS SHIFT. PATIENT DENIES RESPIRATORY DISTRESS THIS SHIFT. PATIENT REDUCED TO 1L O2 THIS SHIFT, MAINTAINING O2 SATS IN THE MID 90S. PATIENT DENIES PAIN THROUGHOUT THIS SHIFT. PATIENT CURRENTLY SITTING UP IN CHAIR, DR IN THE ROOM.
--- NOTE | 2020-09-16 03:51 | NUR ---
SHIFT SUMMARY ADMITTED FOR PNEUMONIA/COVID 19. FULL CODE. DROPLET/CONTACT PRECAUTIONS. 1 ASSIST. BRIDGETT IS PATENT. 1 LPM O2 VIA NC, RA @ HOME. POWERGLIDE IN PLACE LUE. POST THROMBECTOMY PROCEDURE. ANTICOAGULATION THERAPY TO ACHIEVE THERAPEUTIC LEVELS. PT IS A&O X4, COOPERATIVE WITH CARE. TELEMETRY: AFLUTTER @ 40'S BPM RANGE. SEVERAL 3 SECOND PAUSES REPORTED ON PREVIOUS SHIFT. ASYMPTOMATIC.
[2020-09-16 04:53] LABS: International Normalized Ratio 1.93; Prothrombin Time Results 19.9 Sec (9.7-11.5)
--- NOTE | 2020-09-16 16:57 | NUR ---
SHIFT SUMMARY PT AWAKE EARLY THIS AM. P/T IN TO SEE PT BEFORE BREAKFAST, ASSISTING PT TO CHAIR AT BS, AFTER SBA TO BTHRM FOR BM. PT UP TO CHAIR ALL DAY TO PRESENT. PT REPORTED NAPPING OFF AND ON IN THE CHAIR. URIAS CATH D/C'D THIS AM WELL, PER PT REQUEST. PT VOIDING W/O DIFFICULTY. PT THEN UP TO SHOWER AND ABLE TO WASH AND DRESS HERSELF. PT ABLE TO AMBULATE IN RM INDEPENDENTLY, NOW THAT URIAS CATH IS OUT. PT USING FWW FOR SAFETY WHEN UP BY HERSELF. PT IS ALSO NOW ON RA AND DOING WELL. NO C/O SOB. PT IS VERY PLEASANT AND GRATEFUL FOR CARE. PT NOW WAITING FOR COUMADIN TO BECOME THERAPUTIC. DR SELLERS IN TO SEE PT THIS AFTERNOON. CALL LT IN REACH.
--- NOTE | 2020-09-17 05:15 | NUR ---
SHIFT SUMMARY ALERT, ABLE TO MAKE NEEDS KNOWN. COOPERATIVE WITH CARE. CALLS AND ANSWERS QUESTIONS APPROPRIATELY. NO C/O PAIN/DISCOMFORT. REQUIRED 1P ASSIST /c FWW TO BATHROOM; NEEDS ASSISTANCE BEING POSITIONED IN BED AFTER RETURN. NO ACUTE CHANGES NOTED. APPEARED TO REST MUCH OF THE NIGHT. NOTED HYPERTENSION THIS AM 158 SYSTOLIC. RE-CHECKED STILL 141 SYSTOLIC. STATES DOES HAVE HX OF HYPERTENSION AND TYPICALLY TAKES MEDICATIONS TO HELP. ALL OTHER VS WNL. AFEBRILE. VERY EAGER TO DISCHARGE WITH HER SON. BED REMAINS IN LOWEST POSITION. CALL LIGHT AND BELONGINGS WITHIN REACH. CONTINUE WITH CURRENT PLAN OF CARE. REPORT TO ONCOMING RN.
[2020-09-17 05:24] LABS: Prothrombin Time Results 58.1 Sec (9.7-11.5)
[2020-09-17 05:29] LABS: International Normalized Ratio 6.01
--- NOTE | 2020-09-17 16:20 | NUR ---
SHIFT SUMMARY PT CONTINUES TO IMPROVE AGAIN TODAY. UP TO CHAIR FOR BREAKFAST AND HAS REMAINED OUT OF BED THRU OUT THE DAY. INDEPENDENT IN RM USING FWW FOR SAFETY, WHEN STAFF ARE OUT OF RM. ABLE TO AMBULATE AROUND RM, SEVERAL TIMES, WHEN STAFF ARE IN PROVIDING CARE. DR SELLERS IN TO SEE PT THIS AM. PT IS NOW MEDICALLY STABLE FOR D/C. PT TO GO HOME IN AM. PT IS GRATEFUL AND EXCITED TO GO HOME. GRATEFUL FOR CARE GIVEN AND DENIES FURTHER NEEDS. LOVENOX D/C'D AND COUMADIN ON HOLD FOR TONIGHT'S DOSE. CALL LT IN REACH.
--- NOTE | 2020-09-18 03:56 | NUR ---
SHIFT SUMMARY A/O, ABLE TO MAKE NEEDS KNOWN. COOPERATIVE WITH CARE. CALLS AND ANSWERS QUESTIONS APPROPRIATELY. NO C/O PAIN/DISCOMFORT. CONTINUES TO REQUIRE 1P ASSIST TO RESTROOM /c FWW; ASSISTANCE NEEDED TO POSITION SELF IN BED AFTER RETURN. REMAINS EAGER TO RETURN HOME WITH SON. SPOKE TO SON THIS SHIFT STATES HAS MULTIPLE QUESTIONS ABOUT PATIENTS RETURN HOME AND WOULD LIKE TO BE CONFERENCED DURING DISCHARGE INSTRUCTIONS. APPEARED TO REST MUCH OF THE NIGHT. NO ACUTE CHANGES NOTED. AWAITING DISCHARGE HOME. BED REMAINED IN LOWEST POSITION. CALL LIGHT AND BELONGINGS WITHIN REACH. CONTINUE WITH CURRENT PLAN OF CARE. REPORT TO ONCOMING RN.
[2020-09-18 06:24] LABS: Prothrombin Time Results 40.8 Sec (9.7-11.5)
[2020-09-18 07:10] LABS: International Normalized Ratio 4.13
[2020-09-18] MEDS ORDERED: ELIQUIS5 MG PO (12:29)
[2020-09-18] MEDS ORDERED: DEXA2 PO (12:29)
--- NOTE | 2020-09-18 13:28 | NUR ---
PT DISCHARGED AT 1307 VIA WC. PT WITH SON. PT AND SON WAS EDUCATED ABOUT THE NEW MEDICATIONS AND INSTRUCTIONS PER DR. ALSO DISCUSSED THE OUTPT PLAN FOR THIS PT WITH SON VIA PHONE. CM ALSO CAME IN AND DISCUSSED WITH SON ABOUT THE FU APPOINTMENTS WITH UROLOGY PER PCP REFERRAL. SON AWARE ABOUT [facility] WILL CALL FOR FU APPOINTMENT WITHIN 7 DAYS. PT SON ALSO AWARE THAT [facility] WILL BE AT [facility] AN OUTPATIENT. SCRIPT WAS FAXED AND SCANNED TO [facility] FOR ZIOPATCH. PT ALSO GIVEN SCRIPT FOR WALKER. FAXED MEDICATIONS TO PHARMACY [facility]. PT ALSO HAS A HARD SCRIPT ORDER FOR DEXAMETHASONE AND ELIQUIS, WITH INSTRUCTIONS OF TAKING IT IF INR IS 2 TOMORROW. LAB DRAW TOMORROW MORNING; SON IS AWARE AND CM DISCUSSED WITH PT. POWERGLIDE AND IV DC'D. PT EDUCATED ABOUT THE SPREAD OF COVID AND PREVENTION. PRINTED PACKET EDUCATION GIVEN. WAS AWARE THIS MORNING THAT THIS PT HAS IRREGULAR HR OF AFIB OF 70 THEN SOMETIME TODAY TO SHABANA OF 40-50'S. PT DENIES CP OR SOB. ON RA,.
--- NOTE | 2020-09-18 17:58 | NUR ---
ADMIT: 09/07/20 DISCHARGE: 09/18/20 DX:Pneumonia due to COVID-19 virus, CC: [email or web address] YESI CALL: Discharge to home, Son Gabino [phone] will stay with her, call Edna or Gabino for yesi 1 week yesi. RESIDENCE: Home CAREGIVER: Gerald Kaminski, Son, , Delonte Kaminski, Son, , DX: COVID-19, HTN, PVD, CKD-stage 3, see list DME: compression stockings . CCM: none HOME HEALTH: Not considered homebound, no recommedation for home health by PT SUMMARY: Admit 09/08/20 09/18/20 Discharge to her home, son Gabino to stay with her. 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 No care needs identified when completed discharge check list. Has completed quarrentine time. Lab work to be completed at [facility] for INR. Ziopatch order faxed to [facility] by floor nurse. Urology referral to be completed at [facility] follow up appointment. Met with Gabino prior to discharge, discussed yesi call from [place] to schedule follow up visit.
== END 2020-09-18 13:18 | disposition home or self-care (01) | DRG 166 ==
LOC: ER 18:08 → MEDS 23:48 → ICUW 23:48 → ICUE 23:48 → ICUW 09-08 00:15 → ICUE 09-08 00:37 → MEDS 09-11 22:10 → ENPENDDIS 09-18 11:23 → MEDS 09-18 13:18
PROVIDERS: Emergency Medicine; Hospitalist; Internal Medicine; Nurse Practitioner Acute Care; ADMIT Internal Medicine
PROC: XW033E5 Introduction of Remdesivir Anti-infective into Peripheral Vein, Percutaneous Approach, New Technology Group 5 (ICD-10-PCS; principal; 2020-09-07)
PROC: 3E0333Z Introduction of Anti-inflammatory into Peripheral Vein, Percutaneous Approach (ICD-10-PCS; 2020-09-07)
PROC: 3E06317 Introduction of Other Thrombolytic into Central Artery, Percutaneous Approach (ICD-10-PCS; 2020-09-08)
PROC: B5191ZZ Fluoroscopy of Inferior Vena Cava using Low Osmolar Contrast (ICD-10-PCS; 2020-09-08)
PROC: 02FQ3Z0 Fragmentation of Right Pulmonary Artery, Percutaneous Approach, Ultrasonic (ICD-10-PCS; 2020-09-08)
DX: U07.1 COVID-19 (principal); J12.82 Pneumonia due to coronavirus disease 2019; J96.01 Acute respiratory failure with hypoxia; I26.09 Other pulmonary embolism with acute cor pulmonale; I48.92 Unspecified atrial flutter; I82.431 Acute embolism and thrombosis of right popliteal vein; I82.441 Acute embolism and thrombosis of right tibial vein; I82.451 Acute embolism and thrombosis of right peroneal vein; I48.91 Unspecified atrial fibrillation; M35.3 Polymyalgia rheumatica; I10 Essential (primary) hypertension; E78.5 Hyperlipidemia, unspecified; E55.9 Vitamin D deficiency, unspecified; D50.0 Iron deficiency anemia secondary to blood loss (chronic); R00.1 Bradycardia, unspecified; I95.9 Hypotension, unspecified; R31.0 Gross hematuria; Z79.899 Other long term (current) drug therapy; Z79.82 Long term (current) use of aspirin; Z79.52 Long term (current) use of systemic steroids
CPT/HCPCS: 36015; 36415; 37211; 51702; 71045; 71260; 75741; 75825; 76770; 76937; 80048; 80053; 81001; 82728; 83540; 83550; 83615; 83735; 83880; 84100; 84484; 85018; 85025; 85379; 85384; 85610; 85730; 86140; 87086; 87106; 93005; 93010; 93306; 93970; 96365; 96368; 96375; 96376; 97110; 97112; 97116; 97162; 97166; 97530; 97535; 99285-25; A9270; C1751; C1757; C1769; C1894; J0696; J1100; J1644; J1650; J1720; J2250; J2270; J2405; J2997; J3010; J7030; J7040; Q9967

== ENCOUNTER → 2020-11-01 | Outpatient (CLI) | payer MEDICARE ==
[~2020-11-01] MED LIST changes: +DEXA2 PO; +ELIQUIS5 MG PO; +Vitamin D2000 UNIT PO
== END ==
LOC: LAB SHORT 14:22
DX: R31.9 Hematuria, unspecified (principal)
CPT/HCPCS: 87086

== ENCOUNTER 2021-03-16 15:57 | Inpatient (IN) | payer MEDICARE ==
[~2021-03-16] VITALS: Ht 157.5 cm; Wt 80.6 kg
[~2021-03-16 15:57] MED LIST changes: +PRED1 PO
[2021-03-16 17:09] LABS: BASOPHILS ABSOLUTE AUTO 0.03 K/mm3 (0.00-0.23); BASOPHILS PERCENT AUTO 1 % (0-2); EOSINOPHILS ABSOLUTE AUTO 0.16 K/mm3 (0.00-0.68); EOSINOPHILS PERCENT AUTO 2 % (0-6); Hematocrit 34.2 % (33.0-51.0); Hemoglobin 11.1 g/dL (11.5-16.0); IMMATURE GRAN ABSOLUTE AUTO 0.04 K/mm3 (0.00-0.10); IMMATURE GRAN PERCENT AUTO 1 % (0-1); LYMPHOCYTES ABSOLUTE AUTO 0.75 K/mm3 (0.84-5.20); LYMPHOCYTES PERCENT AUTO 11 % (21-46); MONOCYTES ABSOLUTE AUTO 0.83 K/mm3 (0.16-1.47); MONOCYTES PERCENT AUTO 13 % (4-13); Mean Corpuscular HGB Conc 32.5 g/dL (31.5-36.5); Mean Corpuscular Volume 99 fL (80-100); Mean Platelet Volume 10.2 fL (9.1-12.4); NEUTROPHILS ABSOLUTE AUTO 4.79 K/mm3 (1.96-9.15); NEUTROPHILS PERCENT AUTO 73 % (41-73); Platelet Count 158 K/mm3 (150-400); RDW Coefficient Variation 15.3 % (11.7-14.2); RDW Standard Deviation 55.3 fL (35.1-46.3); Red Blood Cell Count 3.47 M/mm3 (3.80-5.20)
[2021-03-16 17:34] LABS: Albumin, Blood 3.2 g/dL (3.4-5.0); Bilirubin, Total 0.4 mg/dL (0.1-1.0); Bun/Creatinine Ratio 13.7 (12.0-20.0); Calcium, Blood 8.5 mg/dL (8.5-10.1); Creatinine, Blood 1.24 mg/dL (0.40-1.00); Globulin, Blood 3.1 g/dL (2.2-4.0); Potassium, Blood 4.1 mmol/L (3.5-5.5); Total Protein, Blood 6.3 g/dL (6.4-8.2)
[2021-03-16 17:51] LABS: SARS-Cov-2 (COVID-19) PCR, MMC NEGATIVE (NEGATIVE)
[2021-03-16 17:52] LABS: Source, Urine Voided
[2021-03-16 17:59] LABS: Appearance, Urine Clear (Clear); Bilirubin, Urine Neg (Neg); Blood, Urine 5+ (Neg); Color, Urine Yellow (P-Yellow); Glucose Qualitative, Urine Neg (Neg); Ketones, Urine Neg (Neg); Leukocyte Esterase, Urine 3+ (Neg); Nitrite, Urine Neg (Neg); Protein, Urine 3+ (Neg); Specific Gravity, Urine 1.015 (1.003-1.022); Urobilinogen, Urine NORM (Normal); pH, Urine 6.5 (5.0-8.0)
[2021-03-16 18:21] LABS: Bacteria Few /hpf; Red Blood Cells, Urine 50-100 /hpf (0-2); Squamous Epithelial Cells Rare /hpf (Few)
[2021-03-16] MEDS ORDERED: OXYB5 PO (21:15)
[2021-03-16] MEDS ORDERED: AMLODIPINE BES2.5 MG PO (21:16)
[2021-03-16] MEDS ORDERED: Vitamin B Comple1 EA PO (21:18)
[2021-03-16] MEDS ORDERED: CO Q-10100 MG PO (21:19)
[2021-03-16] MEDS ORDERED: Prinivil10 MG PO (21:19)
--- NOTE | 2021-03-17 01:22 | NUR ---
PATIENT IS A NEW ADMIT FROM THE ED. ONE ASSIST TRANFER FROM [facility] TO BED. AXOX 3, ON 2L O2 NC AND RA BASELINE. DENIES CHEST PAIN, SOB, AND N/V. REPORTS LOW BACK PAIN. EYE BRUISING NOTED FROM ANESTHESIA MASK ON FRIDAY FROM KIDNEY STONE REMOVAL PER PATIENT. ORIENTED TO ROOM AND CALL LIGHT SYSTEM. REPORTS WANTS TO SLEEP. CALL LIGHT IN REACH.
--- NOTE | 2021-03-17 04:32 | NUR ---
SHIFT SUMMARY PATIENT HAD NO ACUTE CHANGES OBSERVED. AXOX 3 AND ONE ASSIST TO BSC. TAKES MEDICATION WHOLE WITH WATER. PIV REMAINS INTACT. NS INFUSING AT 150 ml/HR. VSS/AFEBRILE. REPORTS LOW BACK PAIN AND TYLENOL GIVEN PER EMAR. DENIES SOB AND N/V. ON 2L O2 N/C AND RA BASELINE. REPORTS LIVES ALONE. CALL LIGHT IN REACH. BED IN LOWEST POSITION. WILL CONTINUE TO MONITOR UNTIL DAY SHIFT NURSE ASSUMES CARE.
[2021-03-17 07:58] LABS: BASOPHILS ABSOLUTE AUTO 0.03 K/mm3 (0.00-0.23); BASOPHILS PERCENT AUTO 1 % (0-2); EOSINOPHILS ABSOLUTE AUTO 0.06 K/mm3 (0.00-0.68); EOSINOPHILS PERCENT AUTO 1 % (0-6); Hematocrit 33.8 % (33.0-51.0); Hemoglobin 10.6 g/dL (11.5-16.0); IMMATURE GRAN ABSOLUTE AUTO 0.01 K/mm3 (0.00-0.10); IMMATURE GRAN PERCENT AUTO 0 % (0-1); LYMPHOCYTES ABSOLUTE AUTO 0.92 K/mm3 (0.84-5.20); LYMPHOCYTES PERCENT AUTO 17 % (21-46); MONOCYTES ABSOLUTE AUTO 0.75 K/mm3 (0.16-1.47); MONOCYTES PERCENT AUTO 14 % (4-13); Mean Corpuscular HGB 31.4 pg (26.0-34.0); Mean Corpuscular HGB Conc 31.4 g/dL (31.5-36.5); Mean Corpuscular Volume 100 fL (80-100); NEUTROPHILS ABSOLUTE AUTO 3.64 K/mm3 (1.96-9.15); NEUTROPHILS PERCENT AUTO 67 % (41-73); Platelet Count 136 K/mm3 (150-400); RDW Standard Deviation 55.3 fL (35.1-46.3); Red Blood Cell Count 3.38 M/mm3 (3.80-5.20); White Blood Cell Count 5.41 K/mm3 (4.00-11.30)
[2021-03-17 08:11] LABS: Bun/Creatinine Ratio 14.3 (12.0-20.0); Calcium, Blood 8.3 mg/dL (8.5-10.1); Creatinine, Blood 0.98 mg/dL (0.40-1.00); Potassium, Blood 3.9 mmol/L (3.5-5.5)
--- NOTE | 2021-03-17 20:08 | NUR ---
a+o, family called multiple times, assisted to bathroom, call light in reach, saline locked, rm air, bsr shared with noc nurse
--- NOTE | 2021-03-18 05:46 | NUR ---
SHIFT SUMMARY PATIENT HAD NO ACUTE CHANGES. AXOX 3 AND SBA TO BR WITH FWW. PIV REMAINS INTACT. IV ABX INFUSED. DENIES PAIN, SOB, AND N/V. VSS/AFEBRILE. ABLE TO REST T/O SHIFT. CALL LIGHT IN REACH. WCTM
[2021-03-18 12:05] LABS: Hematocrit 35.4 % (33.0-51.0); Hemoglobin 11.3 g/dL (11.5-16.0)
--- NOTE | 2021-03-18 20:30 | NUR ---
A+O, SALINE LOCKED, RM AIR, WALKED TO BATHROOM WITH WALKER AND SBA, CALL LIGHT IN REACH, ENJOYED FAMILY PHONE CALLS, BSR SHARED WITH NOC NURSE
--- NOTE | 2021-03-18 20:39 | NUR ---
PATIENT TRANSFER TO ROOM 405. REPORT GIVEN TO FRANKLIN BUCHANAN. PERSONAL BELONGINGS WITH PATIENT. AXOX 3 ON ROOM AIR. DENIES CHEST PAIN, SOB, AND N/V.
--- NOTE | 2021-03-18 22:15 | NUR ---
PATIENT UP TO BR WITH USE OF FRONT WHEELED WALKER. URINE WAS LIGHT YELLOW.
--- NOTE | 2021-03-19 05:45 | NUR ---
PATIENT UP TO BR WITH SBA AND FWW.
--- NOTE | 2021-03-19 05:48 | NUR ---
PATIENT ARRIVED AT APPROX 2100, VERY PLEASANT, NO COMPLAINTS, RECEIVED IV ANTBIOTICS. UP TO BR WITH SBA AND FWW. RESTED QUIETLY THROUGHOUT THE NIGHT. CALL LIGHT WITHIN REACH. AXO.
--- NOTE | 2021-03-19 06:20 | NUR ---
PATIENTS IV IN LAC IS LEAKING AROUND CATHETER INSERTION SITE. RN ATTEMPTED TO START NEW IV IN RAC BUT WAS UNABLE TO CAPTURE THE VEIN. PATIENT WILL BE RECEIVING ROCEPHIN IV AT 0900. RN TO DISCUSS WITH DAYSHIFT NURSE ABOUT STARTING NEW IV. PATIENT TOLERATED ATTEMPT WELL.
[2021-03-19] MEDS ORDERED: AMOCLA875 PO (12:51)
--- NOTE | 2021-03-19 13:07 | NUR ---
PATIENT A/A/O T/O SHIFT. VSS AND NO S/S OF DISTRESS. PATIENT ABLE TO AMBULATE TO BR AND DOWN HALLWAY WITH THE USE OF A WALKER AND SUPERVISION. TALKED TO SON ON THE PHONE AND LET HIM KNOW PATIENT WILL BE DC'D LATER TODAY.
--- NOTE | 2021-03-19 14:43 | NUR ---
Discharge planning discussed with pt. Pt. declined HH services. I advised that HH would be a good idea for patient and that she could always decline if it is not needed later on. Pt. again declined. She feels she has adequate support at home and has an exercise routine. She does not believe she would benefit from PT. Scheduled for hospital F/U on 03/23/21 at 10:[address] Reed. I advised pt. that it is important she keep the important to ensure she is doing well before the weekend. She was agreeable. Denied any further needs at this time. Denied safety concerns or barriers to care at home. Pt. has transportation with family. No other needs.
--- NOTE | 2021-03-19 15:36 | NUR ---
PATIENT D/C'D HOME IN CARE OF SON. DISCHARGE INSTRUCTIONS GIVEN AND PATIENT STATED UNDERSTANDING. GAIT STEADY WITH WALKER. NO C/O OR S/S DISTRESS.
== END 2021-03-19 13:30 | disposition home or self-care (01) | DRG 862 ==
LOC: ER 15:57 → MEDS 22:36 → ER 22:36 → MEDS 03-17 00:34 → ORSCIP 03-18 20:50 → MEDS 03-18 20:50 → ORSCIP 03-19 13:30
PROVIDERS: Emergency Medicine; Family Medicine; Internal Medicine; ADMIT Internal Medicine
DX: T81.40XA Infection following a procedure, unspecified, initial encounter (principal); A41.9 Sepsis, unspecified organism; G93.41 Metabolic encephalopathy; J96.01 Acute respiratory failure with hypoxia; T81.44XA Sepsis following a procedure, initial encounter; Z20.822 Contact with and (suspected) exposure to COVID-19; M35.3 Polymyalgia rheumatica; Z60.2 Problems related to living alone; M19.90 Unspecified osteoarthritis, unspecified site; I12.9 Hypertensive chronic kidney disease with stage 1 through stage 4 chronic kidney disease, or unspecified chronic kidney disease; N18.32 Chronic kidney disease, stage 3b; E78.5 Hyperlipidemia, unspecified; R31.9 Hematuria, unspecified; E55.9 Vitamin D deficiency, unspecified; Z90.49 Acquired absence of other specified parts of digestive tract; Z98.890 Other specified postprocedural states; Z87.442 Personal history of urinary calculi; Z87.19 Personal history of other diseases of the digestive system; Z86.711 Personal history of pulmonary embolism; Z79.01 Long term (current) use of anticoagulants; Z79.899 Other long term (current) drug therapy; Z86.16 Personal history of COVID-19; Z79.52 Long term (current) use of systemic steroids; Y83.8 Other surgical procedures as the cause of abnormal reaction of the patient, or of later complication, without mention of misadventure at the time of the procedure
CPT/HCPCS: 36415; 71045; 71260; 80048; 80053; 81001; 83605; 85014; 85018; 85025; 87040; 87086; 93005; 93010; 96365; 96366; 96367; 96375; 97116; 97162; 97530; 99285-25; A9270; G0378; J0456; J0696; J1720; J7030; J7050; J7512; Q9967; U0004

== ENCOUNTER 2024-03-15 20:11 | Emergency (ER) | payer MEDICARE ==
[~2024-03-15] VITALS: Ht 154.9 cm; Wt 72.6 kg
[~2024-03-15 20:11] MED LIST changes: +AMLODIPINE BES2.5 MG PO; +AMOCLA875 PO; +CO Q-10100 MG PO; +OXYB5 PO; +Prinivil10 MG PO; +Vitamin B Comple1 EA PO
[2024-03-15] MEDS ORDERED: ALDACTONE100 MG PO (20:33)
[2024-03-15] MEDS ORDERED: ELIQUIS2.5 M1 PO (20:34)
[2024-03-15] MEDS ORDERED: FUROSEMIDE40 MG PO (20:34)
[2024-03-15] MEDS ORDERED: FentaNYL Citrate 50 MCG/ML 2 ML Injection IV ONE (20:55)
[2024-03-15 21:05] LABS: BASOPHILS ABSOLUTE AUTO 0.04 K/mm3 (0.00-0.23); BASOPHILS PERCENT AUTO 1 % (0-2); EOSINOPHILS ABSOLUTE AUTO 0.11 K/mm3 (0.00-0.68); EOSINOPHILS PERCENT AUTO 2 % (0-6); Hemoglobin 13.2 g/dL (11.5-16.0); IMMATURE GRAN ABSOLUTE AUTO 0.02 K/mm3 (0.00-0.10); IMMATURE GRAN PERCENT AUTO 0 % (0-1); LYMPHOCYTES PERCENT AUTO 29 % (21-46); MONOCYTES ABSOLUTE AUTO 0.95 K/mm3 (0.16-1.47); MONOCYTES PERCENT AUTO 13 % (4-13); Mean Corpuscular HGB 34.1 pg (26.0-34.0); Mean Corpuscular HGB Conc 33.8 g/dL (31.5-36.5); Mean Corpuscular Volume 101 fL (80-100); Mean Platelet Volume 10.5 fL (9.1-12.4); NEUTROPHILS ABSOLUTE AUTO 3.95 K/mm3 (1.96-9.15); NEUTROPHILS PERCENT AUTO 55 % (41-73); Platelet Count 168 K/mm3 (150-400); RDW Coefficient Variation 12.6 % (11.7-14.2); RDW Standard Deviation 46.8 fL (35.1-46.3); Red Blood Cell Count 3.87 M/mm3 (3.80-5.20); White Blood Cell Count 7.17 K/mm3 (4.00-11.30)
[2024-03-15 21:31] LABS: Albumin, Blood 3.9 g/dL (3.4-5.0); Albumin/Globulin Ratio 1.1 (0.8-1.8); Bilirubin, Total 0.5 mg/dL (0.1-1.0); Bun/Creatinine Ratio 19.5 (12.0-20.0); Calcium, Blood 9.9 mg/dL (8.5-10.1); Creatinine, Blood 1.59 mg/dL (0.40-1.00); Globulin, Blood 3.5 g/dL (2.2-4.0); Potassium, Blood 4.8 mmol/L (3.5-5.5); Total Protein, Blood 7.4 g/dL (6.4-8.2)
[2024-03-15] MEDS ORDERED: Acetaminophen 325 MG TABLET PO ONE (23:05)
[2024-03-15] MEDS ORDERED: OxyCODONE HCL 5 MG TAB PO ONE (23:05)
[2024-03-16] MEDS ORDERED: Ketorolac Tromethamine 30mg Vial IV ONE (00:55)
[2024-03-16 01:00] VITALS: BP 96/61
[2024-03-16] MEDS ORDERED: RX Prepack 6 Tabs Oxycodone 5mg UD ONE (01:15)
[2024-03-16] MEDS ORDERED: RX Prepack 2 Tabs Ondansetron ODT 4MG UD ONE (01:15)
[2024-03-16] MEDS ORDERED: ONDA4ODT MM (01:21)
[2024-03-16] MEDS ORDERED: MORP15ER PO (01:21)
== END 2024-03-16 02:07 | disposition home or self-care (01) ==
LOC: ER 20:11
PROVIDERS: Student in an Organized Health Care Education/Training Program
DX: S42.201A Unspecified fracture of upper end of right humerus, initial encounter for closed fracture (principal); M25.511 Pain in right shoulder; I10 Essential (primary) hypertension; E78.5 Hyperlipidemia, unspecified; M19.90 Unspecified osteoarthritis, unspecified site; W20.8XXA Other cause of strike by thrown, projected or falling object, initial encounter; Z79.52 Long term (current) use of systemic steroids; Z79.899 Other long term (current) drug therapy; Z88.5 Allergy status to narcotic agent
CPT/HCPCS: 70450; 73030; 73060; 73070; 73090; 73552; 80053; 85025; 93005; 93010; 96374; 96375; 99284-25; A9270; J1885; J3010

== ENCOUNTER → 2025-02-18 | Outpatient (CLI) | payer MEDICARE ==
[~2025-02-18] MED LIST changes: +ALDACTONE100 MG PO; +ELIQUIS2.5 M1 PO; +FUROSEMIDE40 MG PO; +MORP15ER PO; +ONDA4ODT MM
[2025-02-25 13:23] LABS: CALCIUM, URINE - PER 24H 111 mg/d (100-250); CALCIUM, URINE - PER VOLUME 7.4 mg/dL; CHLORIDE, URINE - PER 24H 112 mmol/d (140-250); CHLORIDE, URINE - PER VOLUME 75 mmol/L; CITRIC ACID, URINE - PER 24H 352 mg/d (320-1240); CITRIC ACID,URINE - PER VOLUME 235 mg/L; CREATININE, URINE - PER 24H 870 mg/d (400-1300); CREATININE, URINE - PER VOLUME 58 mg/dL; HOURS COLLECTED 24 hr; MAGNESIUM, URINE - PER VOLUME 4.9 mg/dL; MAGNESIUM, URINE PER 24H 74 mg/d (12-199); OXALATE, URINE - PER 24H 36 mg/d (13-40); OXALATE, URINE - PER VOLUME 24 mg/L; PHOSPHORUS, URINE - PER 24H 435 mg/d (400-1300); PHOSPHORUS, URINE - PER VOLUME 29 mg/dL; POTASSIUM, URINE - PER 24H 28 mmol/d (25-125); POTASSIUM, URINE - PER VOLUME 19 mmol/L; SODIUM, URINE - PER 24H 114 mmol/d (51-286); SODIUM, URINE - PER VOLUME 76 mmol/L; SULFATE, URINE - PER 24H < 5 mmol/d (6-30); SULFATE, URINE - PER VOLUME <5 mmol/L; URIC ACID, URINE - PER 24H 166 mg/d (250-750); URIC ACID, URINE - PER VOLUME 11.1 mg/dL; URINE SUPERSATURATION INTERP Abnormal; URINE SUPERSATURATION, CAHPO4 0.22; URINE SUPERSATURATION, CAOX 6.49; URINE SUPERSATURATION, UA CALC 0.51
== END ==
LOC: LAB SHORT 05:15 → LAB 05:15
PROVIDERS: Internal Medicine Nephrology
DX: N20.0 Calculus of kidney (principal)
CPT/HCPCS: 81003; 82131; 82140; 82340; 82436; 82507; 82570; 83735; 83935; 83945; 84105; 84133; 84300; 84392; 84560

== ENCOUNTER 2025-05-16 09:03 | Emergency (ER) | payer OTHER, MEDICARE ==
[~2025-05-16] VITALS: Ht 154.9 cm; Wt 72.6 kg
[2025-05-16] MEDS ORDERED: ACET500 PO (13:07)
[2025-05-16 13:35] VITALS: BP 156/63
== END 2025-05-16 13:36 | disposition home or self-care (01) ==
LOC: ER 09:03
DX: S52.572A Other intraarticular fracture of lower end of left radius, initial encounter for closed fracture (principal); W01.0XXA Fall on same level from slipping, tripping and stumbling without subsequent striking against object, initial encounter; I10 Essential (primary) hypertension; E78.5 Hyperlipidemia, unspecified; Z79.01 Long term (current) use of anticoagulants; Z79.899 Other long term (current) drug therapy; Z88.5 Allergy status to narcotic agent
CPT/HCPCS: 29125; 70450; 73110; 93005; 93010; 99284-25